=== PATIENT | male | born 1980 | race American Indian/Alaskan Native ===

== ENCOUNTER 2018-03-03 03:55 | Emergency (ER) | payer OTHER ==
[2018-03-03 04:15] VITALS: RESP 19; TEMP 98; O2SAT 100
[2018-03-03] MEDS ORDERED: Lidocaine 1% MPF (30 ml) Inj ONE (05:29)
--- NOTE | 2018-03-03 06:33 | ED PDOC ---
Upper Extremity Pain/Injury Time Seen by Provider: 03/03/18 04:12 Chief Complaint (Nursing): Finger,Hand,&Wrist Chief Complaint (Provider): Finger,Hand,&Wrist History Per: Patient History/Exam Limitations: no limitations Additional Complaint(s): 37 years old male presents to the ED for evaluation of right pinky pain and laceration after crushing it while lifting a tire with rims and dropping them accidentally. Patient denies loss of sensation. PMD: Netta Delgadillo Past Medical History Reviewed: Historical Data, Nursing Documentation, Vital Signs Vital Signs: Last Vital Signs Temp 98.0 F 03/03/18 04:11 Pulse 95 H 03/03/18 04:11 Resp 19 03/03/18 04:11 BP 137/82 03/03/18 04:11 Pulse Ox 100 03/03/18 04:11 - Medical History PMH: HTN - Surgical History Surgical History: No Surg Hx - Family History Family History: States: Unknown Family Hx - Social History Current smoker - smoking cessation education provided: No Alcohol: Social Drugs: Denies - Allergies Allergies/Adverse Reactions: Allergies Allergy/AdvReac Type Severity Reaction Status Date / Time No Known Allergies Allergy Verified 03/03/18 04:16 Review of Systems ROS Statement: Except As Marked, All Systems Reviewed And Found Negative Musculoskeletal: Positive for: Hand Pain (Right pinky pain) Neurological: Negative for: Other (Loss of sensation) Physical Exam - Reviewed Nursing Documentation Reviewed: Yes Vital Signs Reviewed: Yes - Physical Exam Appears: Positive for: Non-toxic, No Acute Distress Head Exam: Positive for: ATRAUMATIC, NORMOCEPHALIC Extremity: Positive for: Normal ROM, Other (Distal pinky: 2 cm laceration to palmar medial, 1 cm laceration to palmar lateral and 1 cm laceration to palmar medial) Neurologic/Psych: Positive for: Alert, Oriented. Negative for: Motor/Sensory Deficits - ECG O2 Sat by Pulse Oximetry: 100 (RA) Pulse Ox Interpretation: Normal Medical Decision Making Medical Decision Making: A/P: Crush injury with laceration --No fracture --Pending X-Ray --Clean and repair Scribe Attestation: Documented by Deena Marin acting as a scribe for Mckay Gil MD. Provider Scribe Attestation: All medical record entries made by the Scribe were at my direction and personally dictated by me. I have reviewed the chart and agree that the record accurately reflects my personal performance of the history, physical exam, medical decision making, and the department course for this patient. I have also personally directed, reviewed, and agree with the discharge instructions and disposition. Procedures - Laceration/Wound Repair Right Hand Wound Length (cm): 2 (2cm, 1cm, 1cm ) Wound's Depth, Shape: superficial Wound Explored: clean Betadine Prep?: Yes Anesthesia: 1% Lidocaine Volume Anesthetic (ccs): 10 Wound Debrided: minimal Wound Repaired With: Sutures Suture Size/Type: 5:0 Layer Closure?: No Wound Complexity: Intermediate Disposition - Clinical Impression Clinical Impression: Finger laceration - Disposition Referrals: Margie Velazquez MD [Staff Provider] - Disposition Time: 07:00 Condition: STABLE Instructions: Laceration Repair With Stitches (DC), Common Finger Injuries (DC) Forms: [facility] (Slovak)
[2018-03-03 06:44] VITALS: BP 141/86; PULSE 78
--- NOTE | 2018-03-03 10:26 | RAD ---
PROCEDURE: Right small finger radiographs. HISTORY: crush injury COMPARISON: None. TECHNIQUE: AP radiograph of the right hand, as well as spot oblique and lateral images of small finger were obtained. FINDINGS: RIGHT SMALL FINGER: Normal right small finger, without fracture or focal lesion. Remainder of the right hand (as seen on the AP view) grossly unremarkable. JOINTS: Normal. 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 OTHER FINDINGS: None. IMPRESSION: No acute fracture or dislocation right small finger. Posttraumatic changes of the distal right finger soft tissues are identified including emphysema and trace partial amputation.
== END 2018-03-03 06:43 | disposition home or self-care (01) ==
LOC: H.ER 03:55
DX: S61.216A Laceration without foreign body of right little finger without damage to nail, initial encounter (principal); W20.8XXA Other cause of strike by thrown, projected or falling object, initial encounter; I10 Essential (primary) hypertension; J43.9 Emphysema, unspecified